=== PATIENT | male | born 1985 | race Caucasian/White ===

== ENCOUNTER → 2023-11-23 13:51 | Outpatient (AMB) | payer OTHER, SELFPAY ==
[2023-11-23 13:55] VITALS: BP 118/62; PULSE 80; O2SAT 98; BMI 25.3
--- NOTE | 2023-11-23 13:55 | MHC.PC.OV ---
Vital Signs 11/23/23 13:55 Height 5 ft 10 in Weight 176 lb BMI 25.3 BP 118/62 Blood Pressure Location Lt brachial Position Sitting Pulse 80 Pulse Source Pulse Oximeter Pulse Oximetry (%) 98 Oxygen Delivery Method Room Air Intake Visit Reasons: Est. 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 Allergies No Known Allergies Allergy (Verified 11/23/23 13:59) Tobacco use date assessed: 11/23/23 HPI Est. care, back pain HPI Details New patient Prior PCP:? None x 15 yrs Last office visit/CPE: Acute issue(s): 11/01/23 L5-S1 Microdiscectomy. Greatly improved. PMHx: Back Pain SurgHx: 11/01/23 L5-S1 Microdiscectomy. L Knee Arthroscopy. Anal Fissure. FHx: Dad: HTN, Asthma. Mom: Eczema, Back problems. SocHx: ?Works?doing?[employer].?Quit 6 yrs ago. EtOH: Infrequent [address] dr occassionally. No Drugs. PFSH Medical History (Updated 11/23/23 @ 14:25 by Cristian Bryant) Lumbosacral disc herniation Surgical History (Updated 11/23/23 @ 14:25 by Cristian Bryant) H/O discectomy Family History (Updated 11/23/23 @ 14:05 by Mary Hdz [facility]) Father High blood pressure Asthma Alcoholism Social History (Updated 11/23/23 @ 14:09 by Mary Hdz [facility]) Household Members: Family Both parents involved: No Caregiver staying overnight: No Housing: House Are you a primary manager critical care unit to a significant other at home: No Do you presently have visiting nurse or other home services: No 75 years or older and lives alone: No Alcohol intake: current Comment: on occasion Patient Tobacco Use Status: Former Tobacco user Quit Date: 6 years ago. e-Cigarette/Vaping Use: Never Used Use of substances other than those prescribed or required for medical reasons: No Have you been hit, kicked, punched, or otherwise hurt by someone within the past year? If so, by whom?: No Do you feel safe in your current relationship?: Yes Is there a partner from a previous relationship who is making you feel unsafe now?: No Are you made to feel afraid or neglected: No Special salma needs: No Are you DNR?: No Advance Directives: No Healthcare Proxy: No service: No Current occupational status: employed Current occupation: [employer] Cognitive needs: No Hearing needs: No Vision needs: Yes (prescription glasses.) Questionnaire PHQ-9 Over the last 2 weeks, how often have you been bothered by any of the following problems? 1. Little interest or pleasure in doing things: not at all 2. Feeling down, depressed, or hopeless: not at all 3. Trouble falling or staying asleep, or sleeping too much: not at all 4. Feeling tired or having little energy: not at all 5. Poor appetite or overeating: not at all 6. Feeling bad about yourself - or that you are a failure or have let yourself or your family down: not at all 7. Trouble concentrating on things, such as reading the newspaper or watching television: not at all 8. Moving or speaking so slowly that other people could have noticed. Or the opposite - being so fidgety or restless that you have been moving around a lot more than usual: not at all 9. Thoughts that you would be better off or of hurting yourself in some way: not at all Total score: 0 Source: Developed by Drs. Mc Banks, Candice Pleitez, Hipolito Cabrera and colleagues, with an educational tesfaye from [employer]. Thrive Questionnaire Date Thrive assessed: 11/23/23 I am a: Patient What is your living situation today?: I have a steady place to live Within the past 12 months, did the food you bought not last and you didn't have the money to get more?: Never true Within the past 12 months, did you worry whether your food would run out before you got money to buy more?: Never true Do you have trouble paying for medicines?: No Do you have trouble getting transportation to medical appointments?: No Do you have trouble paying your heating and electricity bill?: No Do you have trouble taking care of your child, family member or friend?: No Do you have trouble with day-to-day activities such as bathing, preparing meals, shopping, managing finances, etc.?: No Are you currently unemployed and looking for a job?: No Are you interested in more education?: No AUDIT C Alcohol Use Questionnaire (AUDIT-C) 1. How often do you have a drink containing alcohol?: Monthly or less 2. How many drinks containing alcohol do you have on a typical day when you are drinking?: 1 or 2 3. How often do you have six or more drinks on one occasion?: Never Total Score: 1 RONNIE-7 AMB Questionnaire RONNIE-7 Date RONNIE - 7 assessed: 11/23/23 Feeling nervous, anxious, or on edge: 0 = Not at all Not being able to stop or control worryin = Not at all Worrying too much about different things: 0 = Not at all Trouble relaxin = Not at all Being so restless that it is hard to sit still: 0 = Not at all Becoming easily annoyed or irritable: 0 = Not at all Feeling afraid as if something awful might happen: 0 = Not at all Total RONNIE-7 score (0-4 normal; 5-9 mild; 10-14 moderate; 15-21 severe): 0 Source: Developed by Drs. Mc Banks, Candice Pleitez, Hipolito Cabrera and colleagues, with an educational tesfaye from [employer]. Review of Systems Const Denies chills, Denies fatigue, Denies fever(s), Denies headache(s) and Denies weakness ENT Denies dizziness and Denies headache(s) Card Denies chest pain, Denies lightheadedness, Denies dyspnea and Denies other (Palpitations) Resp Denies cough, Denies dyspnea, Denies wheezing and Denies other ( shortness of breath) Musc Denies numbness and Denies tingling Neuro Denies dizziness, Denies headache(s), Denies numbness, Denies tingling, Denies paresthesias and Denies weakness Psych Denies anxiety and Denies depression Endo Denies fatigue Aller/Immun Denies wheezing Physical exam (Primary Care) Vital Signs: Last Vital Signs Pulse 80 11/23/23 13:55 BP 118/62 11/23/23 13:55 Pulse Ox 98 11/23/23 13:55 Oxygen Delivery Method Room Air 11/23/23 13:55 BMI result Body Mass Index 25.3 Tobacco/Smoking Status: Tobacco use Status Tobacco use date assessed 11/23/23 11/23/23 14:14 Patient Tobacco Use Status Former Tobacco user 11/23/23 14:14 e-Cigarette/Vaping Use Never Used 11/23/23 14:14 PHQ-9: PHQ-9 Score PHQ-9: Total score 0 11/23/23 14:14 Thrive Assessment: Date of Thrive Assessment Date Thrive assessed 11/23/23 11/23/23 14:14 Const General: no acute distress and well developed Nutritional Appearance: well nourished Orientation/consciousness: patient oriented x3 HENMT Head: Yes normocephalic and Yes atraumatic Eyes General: appearance normal, both eyes and all related structures Pupils: Equal, round and reactive pupils present EOM: EOMs intact bilaterally Resp Effort & Inspection: normal respiratory effort Auscultation: clear to auscultation bilaterally Cardio Rate: regular rate Rhythm: regular rhythm Heart sounds: S1 normal heart sound present, S2 normal heart sound present, no gallops, no murmurs and no rubs Neuro General: patient oriented x3 and gait normal Cranial nerves: Yes Equal, round and reactive pupils present Psych Affect: normal affect Assessment and Plan Assessment & Plan (1) Back pain: Code(s): M54.9 - Dorsalgia, unspecified Plan: Now?s/p?L5-S1?microdiskectomy?with?excellent?results.??Patient's?pain?has?resolved. He?has?follow-up?with?his?neurosurgeon?in?5?days. He?will?ask?them?to?forward?her?note?to?me. I?advised?him?to?inquire?about?physical?therapy?encouraged?him?to?keep?his?back?and?core?muscle?strong.??He?works?doing?[employer]?which?is?a?risk?factor?for?back?injuries. (2) Lumbosacral disc herniation: Code(s): M51.27 - Other intervertebral disc displacement, lumbosacral region Plan: As?above (3) H/O discectomy: Code(s): Z98.890 - Other specified postprocedural states Plan: As?above (4) Laboratory exam ordered as part of routine general medical examination: Code(s): Z00.00 - Encounter for general adult medical examination without abnormal findings Plan: Check?labs Orders: Orders Comprehensive [place]. Panel Fast Today Z00.00 - Encounter for general adult medical examination without abnormal findings Lipid Panel Today Z00.00 - Encounter for general adult medical examination without abnormal findings Microalbumin, Random (w Creat) Today I10 - Essential (primary) hypertension TSH reflex Free T4 Today Z00.00 - Encounter for general adult medical examination without abnormal findings UA and rflx microscopic Today Z00.00 - Encounter for general adult medical examination without abnormal findings Vitamin B12 and Folate Today E53.8 - Deficiency of other specified B group vitamins Complete Blood Count Auto Diff Today Z00.00 - Encounter for general adult medical examination without abnormal findings Coding Level of Care Code New Pt Level 3 (02317) Diagnoses Back pain M54.9 Lumbosacral disc herniation M51.27 H/O discectomy Z98.890 Laboratory exam ordered as part of routine general medical examination Z00.00
== END ==
PROVIDERS: PCP Family Medicine; Visit Provider Family Medicine
DX: M54.9 Dorsalgia, unspecified (principal); M51.27 Other intervertebral disc displacement, lumbosacral region; Z98.890 Other specified postprocedural states; Z00.00 Encounter for general adult medical examination without abnormal findings
CPT/HCPCS: 99203